=== PATIENT | male | born 1995 | race Caucasian/White ===

== ENCOUNTER 2017-01-30 10:05 | Emergency (ER) | payer MEDICAID ==
[~2017-01-30] VITALS: Ht 162.6 cm; Wt 90.0 kg
[2017-01-30 10:08] VITALS: Ht 162.6 cm; Wt 90.0 kg
--- NOTE | 2017-01-30 11:18 | RADRPT ---
PROCEDURE: XR Hand. CLINICAL INDICATION: Pain TECHNIQUE: AP oblique and lateral views of the right hand were obtained. COMPARISON: No prior studies are available for comparison. FINDINGS: There is normal mineralization. No acute fracture or dislocation is seen. There are no significant degenerative changes. There is no significant soft tissue swelling. RPTAT: AA IMPRESSION: Normal x-ray of the right hand x-ray . .Neftali Marques MD, MD Date Time Electronically viewed and signed by .Neftali Marques MD, on 01/30/2017 11:18 .S/
[2017-01-30] MEDS ORDERED: IBUP400T22 PO (11:37)
[2017-01-30 11:50] VITALS: BP 132/78; PULSE 75; RESP 18; TEMP 98.1
--- NOTE | 2017-01-30 13:20 | ERD ---
ER Documentation Chief Complaint Date/Time DATE: 01/30/17 TIME: 13:13 Chief Complaint right hand pain HPI This is a 21-year-old male presenting to emergency department with right hand pain 2 days. Patient states yesterday he fell onto his right hand and in a fist. Patient is now having pain to third and fourth digit primarily at the proximal joints. Patient reports mild swelling. No laceration or ecchymosis. No erythema. No warmth. Patient has full range of motion. Patient did not take any medications for this. ROS All systems reviewed and are negative except as per history of present illness. Medications Home Meds Active Scripts Ibuprofen* (Motrin*) 400 Mg Tab, 400 MG PO Q6, #30 TAB Prov:JULIAN CHAVEZ NP 01/30/17 Allergies Allergies: Coded Allergies: No Known Allergy (Unverified , 01/30/17) PMhx/Soc Medical and Surgical Hx: pt denies Medical Hx, pt denies Surgical Hx History of Surgery: No Anesthesia Reaction: No Hx Neurological Disorder: No Hx Respiratory Disorders: No Hx Cardiac Disorders: No Hx Psychiatric Problems: No Hx Miscellaneous Medical Probl: No Hx Alcohol Use: No Hx Substance Use: No Hx Tobacco Use: No Smoking Status: Never smoker Physical Exam Vitals Vital Signs Date Time Temp Pulse Resp B/P Pulse Ox O2 Delivery O2 Flow Rate FiO2 01/30/17 11:50 98.1 75 18 132/78 99 Room Air 01/30/17 10:08 98.1 78 18 137/83 99 Physical Exam Const: No acute distress, alert Head: Atraumatic Eyes: Normal Conjunctiva ENT: Normal External Ears, Nose and Mouth. Neck: Full range of motion..~ No meningismus. Resp: Clear to auscultation bilaterally Cardio: Regular rate and rhythm, no murmurs Abd: Soft, non tender, non distended. Normal bowel sounds Skin: No petechiae or rashes. No erythema or warmth. Back: No midline or flank tenderness Ext: No cyanosis, or edema. Patient can make a fist and can hyperextend all digits on right hand. capillary refill < 3 seconds on right hand. Radial pulse 2+ bilaterally. [employer] strength strong and equal bilaterally. Neur: Awake and alert Psych: Normal Mood and Affect Procedures/MDM [place] [id number] Radiology Main Line: [phone] DIAGNOSTIC IMAGING REPORT Patient: OLESYA MICHELLE : 1995 Age: 21 Sex: M MR #: [id number] DOS: 01/30/17 1037 Ordering MD: JULIAN SERRANO NP Location: [facility] Room/Bed: PROCEDURE: XR Hand. CLINICAL INDICATION: Pain TECHNIQUE: AP oblique and lateral views of the right hand were obtained. COMPARISON: No prior studies are available for comparison. FINDINGS: There is normal mineralization. No acute fracture or dislocation is seen. There are no significant degenerative changes. There is no significant soft tissue swelling. RPTAT: AA IMPRESSION: Normal x-ray of the right hand x-ray . MDM: This is a 21-year-old male presenting to emerge department with right hand pain after fall yesterday. Patient states he fell with his right hand in a fist. Patient is having third and fourth digit pain. X-ray right hand reviewed by radiologist as normal x-ray of the right hand. Sensation fully intact. Patient has full mobility to right hand and all digits. Patient is in no acute distress and appears stable. Low suspicion for acute dislocation or fracture. Patient likely has hand sprain. Patient is appropriate for outpatient management and will be given prescription for ibuprofen 400mg #30. Instructed patient to follow-up with primary care provider in the next week for reassessment and additional management. Resources provided. Return to ED for any high fever, chest pain, difficulty breathing, shortness breath, wheezing, vomiting, diarrhea, abdominal pain or any new or worsening symptoms. Patient verbalizes understanding. All questions answered at discharge. Patient discharged in compliance with the [facility] treat and release policy. Disclaimer: Inadvertent spelling and grammatical errors are likely due to EHR/ dictation software use and do not reflect on the overall quality of patient care. Also, please note that the electronic time recorded on this note does not necessarily reflect the actual time of the patient encounter. Departure Diagnosis: Primary Impression: Injury of hand Encounter type: initial encounter Laterality: right Qualified Code: S69.91XA - Injury of right hand, initial encounter Condition: Stable Patient Instructions: Sprain Hand Referrals: [facility] YOU HAVE RECEIVED A MEDICAL SCREENING EXAM AND THE RESULTS INDICATE THAT YOU DO NOT HAVE A CONDITION THAT REQUIRES URGENT TREATMENT IN THE EMERGENCY DEPARTMENT. FURTHER EVALUATION AND TREATMENT OF YOUR CONDITION CAN WAIT UNTIL YOU ARE SEEN IN YOUR DOCTORS OFFICE WITHIN THE NEXT 1-2 DAYS. IT IS YOUR RESPONSIBILITY TO MAKE AN APPOINTMENT FOR FOLOW-UP CARE. IF YOU HAVE A PRIMARY DOCTOR --you should call your primary doctor and schedule an appointment IF YOU DO NOT HAVE A PRIMARY DOCTOR YOU CAN CALL OUR PHYSICIAN REFERRAL HOTLINE AT IF YOU CAN NOT AFFORD TO SEE A PHYSICIAN YOU CAN CHOSE FROM THE FOLLOWING [facility] [address] [facility] [address] [facility] [facility] [address] [facility] [address] [facility] [address] [facility]. [facility] [address] [facility] [facility] YOU HAVE RECEIVED A MEDICAL SCREENING EXAM AND THE RESULTS INDICATE THAT YOU DO NOT HAVE A CONDITION THAT REQUIRES URGENT TREATMENT IN THE EMERGENCY DEPARTMENT. FURTHER EVALUATION AND TREATMENT OF YOUR CONDITION CAN WAIT UNTIL YOU ARE SEEN IN YOUR DOCTORS OFFICE WITHIN THE NEXT 1-2 DAYS. IT IS YOUR RESPONSIBILITY TO MAKE AN APPOINTMENT FOR FOLOW-UP CARE. IF YOU HAVE A PRIMARY DOCTOR --you should call your primary doctor and schedule and appointment IF YOU DO NOT HAVE A PRIMARY DOCTOR YOU CAN CALL OUR PHYSICIAN REFERRAL HOTLINE AT . IF YOU CAN NOT AFFORD TO SEE A PHYSICIAN YOU CAN CHOSE FROM THE FOLLOWING [facility] INSTITUTIONS: [facility] [address] [place] [address] [facility] [address] [place] [address] [facility] [address] [place] [address] Additional Instructions: Call your primary care doctor TOMORROW for an appointment during the next 2-3 days.See the doctor sooner or return here if your condition worsens before your appointment time. Return to ED for any high fever, chest pain, difficulty breathing, shortness breath, wheezing, vomiting, diarrhea, abdominal pain or any new or worsening symptoms. KATHY,JULIAN R. HOMEOPATHIC DOCTOR Jan 30, 2017 13:20
== END 2017-01-30 12:11 | disposition home or self-care (01) ==
LOC: FTE 10:05
DX: S69.91XA Unspecified injury of right wrist, hand and finger(s), initial encounter (principal); W18.39XA Other fall on same level, initial encounter; Y92.9 Unspecified place or not applicable
CPT/HCPCS: 73130; Z7502

== ENCOUNTER 2018-12-24 12:36 | Emergency (ER) | payer MEDICAID, OTHER ==
[~2018-12-24] VITALS: Ht 167.6 cm; Wt 100.0 kg
[~2018-12-24 12:36] MED LIST: ALBU18HF INHALATION; IBUP-1561 PO; IBUP800T48 PO
[2018-12-24 12:51] VITALS: BP 123/74; PULSE 96; RESP 20; Ht 167.6 cm; Wt 100.0 kg
[2018-12-24] MEDS ORDERED: IBUPROFEN 800 MG TAB PO ONE (14:30)
== END 2018-12-24 15:14 | disposition home or self-care (01) ==
LOC: FTE 12:36
DX: R06.02 Shortness of breath (principal)
CPT/HCPCS: 71045; 93005; Z7502; Z7610